=== PATIENT | female | born 1985 | race Caucasian/White ===

== ENCOUNTER 2018-07-25 21:09 | Inpatient (IN) ==
--- NOTE | 2018-07-25 22:09 | ED ---
History of Present Illness Primary Care Physician: NOT REQUIRED Chief Complaint: Decreased movement History of Present Illness: 32 year-old , IUP at 40.3 care complicated by postterm , GBS positive The patient presents complaining of decreased movement and no movement for over an hour. She reports she feels movements now, but they are still decreased. She tried kick counts but with cold water. She reports she has had a lot of mucus discharge. She denies any leaking of fluid or vaginal bleeding. She has no other obstetrical complaints. 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 PMH: Denies PSH: Breast augmentation FH: Denies SH: Denies Meds/Allergies: as per EMR Weeks Gestation:: 40 Para: 1 : 2 Review of Systems All other systems reviewed negative except as stated in HPI Medications and Allergies Allergies Allergy/AdvReac Type Severity Reaction Status Date / Time No Known Drug Allergies Allergy Unknown NONE Verified 07/25/18 21:23 Home Medications Medication Instructions Recorded Confirmed Type prenat.vits,richard,[id number] 1 tab PO DAILY 07/25/18 07/25/18 History [ Vitamin] Exam Vital signs: Vital Signs 07/25/18 21:27 07/25/18 21:35 Temperature 97.8 F Pulse Rate 82 Respiratory Rate 18 Blood Pressure 128/62 Intake & Output 07/25/18 07/25/18 07/26/18 06:59 18:59 06:59 Weight 76.204 kg Narrative: GENERAL: Well-nourished, well-developed patient. SKIN: Warm and dry. No rashes, masses, lesions. HEAD: Normocephalic and atraumatic. EYES: No scleral icterus. No injection or drainage. ENT: No nasal drainage noted. Mucous membranes pink. Airway patent. NECK: Supple, trachea midline. No JVD. CARDIOVASCULAR: Regular rate and rhythm without murmurs, gallops, or rubs. RESPIRATORY: Breath sounds equal bilaterally. No accessory muscle use. BREASTS: Deferred ABDOMEN/GI: Abdomen soft, non-tender, bowel sounds present, no rebound, no guarding Gravid GENITOURINARY: Normal EGBUS, no cervical or vaginal masses noted, physiologic discharge, grossly normal rugae, SVE 1-2/50/-2 FHT's: heart tones are in the 110s with moderate long-term variability, good accelerations, no decelerations noted. This reactive NST and category 1 heart rate tracing. NST indicated for postterm and decreased movement. Reassuring testing but will continue monitoring. EXTREMITIES: No cyanosis or edema. BACK: Nontender without obvious deformity. No CVA tenderness. NEUROLOGICAL/psychiatric: Awake and alert. Motor and sensory grossly within normal limits. Cranial nerves II through XII grossly intact. Grossly normal range of motion. Grossly normal muscle strength in all muscle groups. Normal speech. Normal memory/affect. Oriented x3. A limited bedside ultrasound was performed for biophysical profile and to assess TANESHA. The TANESHA measured 4.81 with pockets of 2.32/1 0.13/1.36. Another pocket appeared to have fluid however was filled with umbilical cord. Good movements and flexion/extension were noted. Assessment and Plan - Plan Assessment/plan: 1. IUP at 40.3 2. Postdate with decreased movement and oligohydramnios: An ultrasound was performed at the bedside which revealed an TANESHA less than 5.0. Discussed with the patient and her the risks, benefits, and alternatives to induction of labor as well as the risks, indications of delivery. We discussed that the patient refused induction of labor, we could IV hydrate and reassess amniotic fluid. The patient is in agreement with induction of labor. She was counseled on the various methods and is in agreement to proceed. All of her questions were answered. 3. well-being: Reassuring testing with reactive NST and category 1 heart rate tracing, oligohydramnios as above 4. GBS positive: will start GBS prophylaxis when in labor, discussed reason for treatment of GBS and that treatment reduces risk of GBS infection by 50%. 5. Abnormal PAP: follow up Discharge Plan - Physicians Team ED Provider: Sruthi Lynn Primary Care Provider: NOT REQUIRED, - Rxs /Orders / Referrals /Forms Prescriptions: No Action prenat.vits,richard,[id number] [ Vitamin] Tablet 1 tab PO DAILY - Discharge Instructions Print Language: Bermudian
[2018-07-25] MEDS ORDERED: Naloxone Inj 0.4 MG/ML Vial IV.PUSH PRN (22:41)
[2018-07-25] MEDS ORDERED: Sod Chloride 0.9% Inj 1,000 ML IV.CONT PRN (22:41)
[2018-07-25] MEDS ORDERED: Sodium Chlor 0.9% Inj 500 ML IV.SIG PRN (22:41)
[2018-07-25] MEDS ORDERED: fentaNYL Citrate Inj 100 MCG/2 ML Ampul IV.PUSH PRN ×2 (22:41)
[2018-07-25] MEDS ORDERED: Oxytocin 30 Units/500ml Premix 30 UNITS/500 ML BAG IV.SIG ONE (22:41)
[2018-07-25] MEDS ORDERED: Citric Acid/Sodium Citrate Liq 30 ML UDC PO SCH (22:45)
--- NOTE | 2018-07-25 23:03 | P.HPUP ---
The Pre-Admit History and Physical Examination regarding the above named patient was reviewed (including, but not limited to, vital signs, heart, lungs, co-morbid conditions), and upon re-examination it is noted that: the patient's condition has not significantly changed since the last examination. History of Present Illness Primary Care Physician: NOT REQUIRED Chief Complaint: Decreased movement History of Present Illness: 32 year-old , IUP at 40.3 care complicated by postterm , GBS positive The patient presents complaining of decreased movement and no movement for over an hour. She reports she feels movements now, but they are still decreased. She tried kick counts but with cold water. She reports she has had a lot of mucus discharge. She denies any leaking of fluid or vaginal bleeding. She has no other obstetrical complaints. 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 PMH: Denies PSH: Breast augmentation FH: Denies SH: Denies Meds/Allergies: as per EMR Weeks Gestation:: 40 Para: 1 : 2 Review of Systems All other systems reviewed negative except as stated in HPI Medications and Allergies Allergies Allergy/AdvReac Type Severity Reaction Status Date / Time No Known Drug Allergies Allergy Unknown NONE Verified 07/25/18 21:23 Home Medications Medication Instructions Recorded Confirmed Type prenat.vits,richard,[id number] 1 tab PO DAILY 07/25/18 07/25/18 History [ Vitamin] Exam Vital signs: Vital Signs 07/25/18 21:27 07/25/18 21:35 Temperature 97.8 F Pulse Rate 82 Respiratory Rate 18 Blood Pressure 128/62 Intake & Output 07/25/18 07/25/18 07/26/18 06:59 18:59 06:59 Weight 76.204 kg Narrative: GENERAL: Well-nourished, well-developed patient. SKIN: Warm and dry. No rashes, masses, lesions. HEAD: Normocephalic and atraumatic. EYES: No scleral icterus. No injection or drainage. ENT: No nasal drainage noted. Mucous membranes pink. Airway patent. NECK: Supple, trachea midline. No JVD. CARDIOVASCULAR: Regular rate and rhythm without murmurs, gallops, or rubs. RESPIRATORY: Breath sounds equal bilaterally. No accessory muscle use. BREASTS: Deferred ABDOMEN/GI: Abdomen soft, non-tender, bowel sounds present, no rebound, no guarding Gravid GENITOURINARY: Normal EGBUS, no cervical or vaginal masses noted, physiologic discharge, grossly normal rugae, SVE 1-2/50/-2 FHT's: heart tones are in the 110s with moderate long-term variability, good accelerations, no decelerations noted. This reactive NST and category 1 heart rate tracing. NST indicated for postterm and decreased movement. Reassuring testing but will continue monitoring. EXTREMITIES: No cyanosis or edema. BACK: Nontender without obvious deformity. No CVA tenderness. NEUROLOGICAL/psychiatric: Awake and alert. Motor and sensory grossly within normal limits. Cranial nerves II through XII grossly intact. Grossly normal range of motion. Grossly normal muscle strength in all muscle groups. Normal speech. Normal memory/affect. Oriented x3. A limited bedside ultrasound was performed for biophysical profile and to assess TANESHA. The TANESHA measured 4.81 with pockets of 2.32/1 0.13/1.36. Another pocket appeared to have fluid however was filled with umbilical cord. Good movements and flexion/extension were noted. Assessment and Plan - Plan Assessment/plan: 1. IUP at 40.3 2. Postdate with decreased movement and oligohydramnios: An ultrasound was performed at the bedside which revealed an TANESHA less than 5.0. Discussed with the patient and her the risks, benefits, and alternatives to induction of labor as well as the risks, indications of delivery. We discussed that the patient refused induction of labor, we could IV hydrate and reassess amniotic fluid. The patient is in agreement with induction of labor. She was counseled on the various methods and is in agreement to proceed. All of her questions were answered. 3. well-being: Reassuring testing with reactive NST and category 1 heart rate tracing, oligohydramnios as above 4. GBS positive: will start GBS prophylaxis when in labor, discussed reason for treatment of GBS and that treatment reduces risk of GBS infection by 50%. 5. Abnormal PAP: follow up Discharge Plan - Physicians Team ED Provider: Sruthi Lynn Primary Care Provider: NOT REQUIRED, - Rxs /Orders / Referrals /Forms Prescriptions: No Action prenat.vits,richard,[id number] [ Vitamin] Tablet 1 tab PO DAILY - Discharge Instructions Print Language: Bahamian
[2018-07-25 23:04] LABS: Bilirubin,Urine Negative (Negative); Clarity,Urine Clear (Clear); Color,Urine Yellow (Yellw/Straw); Glucose,Urine (UA) Negative (Negative); Leukocyte Esterase,Urine Negative (Negative); Mucus,Urine Few /lpf (Occasional); Nitrite,Urine Negative (Negative); Specific Gravity,Urine 1.011 (1.002-1.035); Squamous Epithelial Cell,Urine 1 /hpf (0-5)
[2018-07-25 23:07] LABS: Amphetamine Urine With Conf Neg (Neg); Benzodiazepine Urine With Conf Neg (Neg)
[2018-07-25 23:20] LABS: Baso % (Auto) 0.3 % (0.0-2.0); Eos # (Auto) 0.1 th/mm3 (0.0-0.4); Eos % (Auto) 0.6 % (0.0-4.0); Hematocrit 34.9 % (35.0-46.0); Hemoglobin 11.7 gm/dL (11.6-15.3); Lymph # (Auto) 2.1 th/mm3 (1.0-4.8); Lymph % (Auto) 16.7 % (9.0-44.0); Mean Corpuscular HGB Conc 33.7 % (32.0-36.0); Mean Corpuscular Hemoglobin 31.8 pg (27.0-34.0); Mean Corpuscular Volume 94.3 fL (80.0-100.0); Mean Platelet Volume 9.6 fL (7.0-11.0); Mono # (Auto) 0.7 th/mm3 (0.0-0.9); Mono % (Auto) 5.3 % (0.0-8.0); Neut # (Auto) 9.6 th/mm3 (1.8-7.7); Neut % (Auto) 77.1 % (16.0-70.0); Platelet Count 209 th/mm3 (150-450); White Blood Count 12.5 th/mm3 (4.0-11.0)
--- NOTE | 2018-07-26 07:02 | P.PN ---
Subjective Interval history: OBHG S: patient comfortable O: VSS AF FHT: 110s-120s with moderate assisted variability, good accelerations, no decelerations. Category 1 heart rate tracing, reactive NST [place]: Irregular SVE: 1-2/50/-2 A/P: 1. IUP at 40.4 2. Posterm IOL for oligohydramnios: s/p po cytotec x1, cytotec PV placed 3. GBS positive: PCN G ordered 4. wellbeing: Category 1 heart rate tracing, reactive NST, continue EFM Physical Exam Vital signs: Vital Signs 07/25/18 21:27 07/25/18 21:35 07/26/18 00:30 Temperature 97.8 F Pulse Rate 82 74 Respiratory Rate 18 18 Blood Pressure 128/62 114/65 07/26/18 01:50 07/26/18 02:05 07/26/18 04:00 Temperature Pulse Rate 69 77 Respiratory Rate 18 Blood Pressure 07/26/18 05:03 07/26/18 05:04 07/26/18 06:57 Temperature 98.4 F Pulse Rate 73 80 Respiratory Rate 18 Blood Pressure 108/68 115/64 Intake & Output 07/25/18 07/26/18 07/26/18 18:59 06:59 18:59 Weight 76.204 kg Results - Labs CBC & Chem 7: 07/25/18 23:00 Laboratory Results - last 24 hr 07/25/18 07/25/18 07/25/18 21:24 21:24 23:00 WBC 12.5 H RBC 3.70 L Hgb 11.7 Hct 34.9 L MCV 94.3 MCH 31.8 MCHC 33.7 RDW 14.0 Plt Count 209 MPV 9.6 Neut % (Auto) 77.1 H Lymph % (Auto) 16.7 [place] % (Auto) 5.3 Eos % (Auto) 0.6 Baso % (Auto) 0.3 Neut # (Auto) 9.6 H Lymph # (Auto) 2.1 [place] # (Auto) 0.7 Eos # (Auto) 0.1 Baso # (Auto) 0.0 WBC Differential . Differential Comment Auto diff final Urine Color Yellow Urine Clarity Clear Urine pH 7.0 Ur Specific [place] 1.011 Urine Protein Negative Urine Glucose (UA) Negative Urine Ketones Negative Urine Occult Blood Negative Urine Nitrate Negative Urine Bilirubin Negative Urine Urobilinogen Less than 2 Ur Leukocyte Esterase Negative Urine WBC Less than 1 Ur Squamous Epith Cells 1 Urine Mucus Few H Micro UA Comment Culture not ind Ur Microscopic Review Not Reportable Urine Culture Comments Culture not ind Urine Opiates Screen Neg Ur Barbiturates Screen Neg Ur Amphetamine Screen Neg U Benzodiazepines Scrn Neg Urine Cocaine Screen Neg U Cannabinoids Screen Neg Blood Type Blood Type Recheck 07/25/18 23:00 WBC RBC Hgb Hct MCV MCH MCHC RDW Plt Count MPV Neut % (Auto) Lymph % (Auto) [place] % (Auto) Eos % (Auto) Baso % (Auto) Neut # (Auto) Lymph # (Auto) [place] # (Auto) Eos # (Auto) Baso # (Auto) WBC Differential Differential Comment Urine Color Urine Clarity Urine pH Ur Specific [place] Urine Protein Urine Glucose (UA) Urine Ketones Urine Occult Blood Urine Nitrate Urine Bilirubin Urine Urobilinogen Ur Leukocyte Esterase Urine WBC Ur Squamous Epith Cells Urine Mucus Micro UA Comment Ur Microscopic Review Urine Culture Comments Urine Opiates Screen Ur Barbiturates Screen Ur Amphetamine Screen U Benzodiazepines Scrn Urine Cocaine Screen U Cannabinoids Screen Blood Type O Positive Blood Type Recheck Required
[2018-07-26] MEDS ORDERED: Penicillin G Potassium Inj 5,000,000 UNIT in Sodium Chloride 0.9% Inj 100 ML IV.SIG ONE (08:00)
--- NOTE | 2018-07-26 08:29 | P.OBANTE ---
Subjective Interval History: No new complaints. Feeling some cramping/possible contractions. Vitals wnl. FHT reassuring. Antepartum ROS: Denies: New complaints, Loss of fluid, Vaginal bleeding, movement normal Objective Vital Signs and I&O: Vital Signs 07/25/18 21:27 07/25/18 21:35 07/26/18 00:30 Temperature 97.8 F Pulse Rate 82 74 Respiratory Rate 18 18 Blood Pressure 128/62 114/65 07/26/18 01:50 07/26/18 02:05 07/26/18 04:00 Temperature Pulse Rate 69 77 Respiratory Rate 18 Blood Pressure 07/26/18 05:03 07/26/18 05:04 07/26/18 06:57 Temperature 98.4 F Pulse Rate 73 80 Respiratory Rate 18 Blood Pressure 108/68 115/64 07/26/18 07:00 Temperature 97.8 F Pulse Rate Respiratory Rate Blood Pressure Intake & Output 07/25/18 07/26/18 07/26/18 18:59 06:59 18:59 Weight 76.204 kg 76 kg Other: Weight On Admission 76 kg Lab and Micro Results: Laboratory Results - last 24 hr 07/25/18 07/25/18 07/25/18 21:24 21:24 23:00 WBC 12.5 H RBC 3.70 L Hgb 11.7 Hct 34.9 L MCV 94.3 MCH 31.8 MCHC 33.7 RDW 14.0 Plt Count 209 MPV 9.6 Neut % (Auto) 77.1 H Lymph % (Auto) 16.7 [place] % (Auto) 5.3 Eos % (Auto) 0.6 Baso % (Auto) 0.3 Neut # (Auto) 9.6 H Lymph # (Auto) 2.1 [place] # (Auto) 0.7 Eos # (Auto) 0.1 Baso # (Auto) 0.0 WBC Differential . Differential Comment Auto diff final Urine Color Yellow Urine Clarity Clear Urine pH 7.0 Ur Specific [place] 1.011 Urine Protein Negative Urine Glucose (UA) Negative Urine Ketones Negative Urine Occult Blood Negative Urine Nitrate Negative Urine Bilirubin Negative Urine Urobilinogen Less than 2 Ur Leukocyte Esterase Negative Urine WBC Less than 1 Ur Squamous Epith Cells 1 Urine Mucus Few H Micro UA Comment Culture not ind Ur Microscopic Review Not Reportable Urine Culture Comments Culture not ind Urine Opiates Screen Neg Ur Barbiturates Screen Neg Ur Amphetamine Screen Neg U Benzodiazepines Scrn Neg Urine Cocaine Screen Neg U Cannabinoids Screen Neg Blood Type Blood Type Recheck 07/25/18 23:00 WBC RBC Hgb Hct MCV MCH MCHC RDW Plt Count MPV Neut % (Auto) Lymph % (Auto) [place] % (Auto) Eos % (Auto) Baso % (Auto) Neut # (Auto) Lymph # (Auto) [place] # (Auto) Eos # (Auto) Baso # (Auto) WBC Differential Differential Comment Urine Color Urine Clarity Urine pH Ur Specific [place] Urine Protein Urine Glucose (UA) Urine Ketones Urine Occult Blood Urine Nitrate Urine Bilirubin Urine Urobilinogen Ur Leukocyte Esterase Urine WBC Ur Squamous Epith Cells Urine Mucus Micro UA Comment Ur Microscopic Review Urine Culture Comments Urine Opiates Screen Ur Barbiturates Screen Ur Amphetamine Screen U Benzodiazepines Scrn Urine Cocaine Screen U Cannabinoids Screen Blood Type O Positive Blood Type Recheck Required Physical Exam: GENERAL: Well-nourished, well-developed patient. CARDIOVASCULAR: Regular rate and rhythm without murmurs, gallops, or rubs. RESPIRATORY: Breath sounds equal bilaterally. No accessory muscle use. ABDOMEN/GI: Abdomen soft, non-tender. Fundus: [-] GENITOURINARY: External Genitalia: intact and normal in appearance Cervix: Dilatation: 4 cm Effacement: 80% Station: -1 Presentation: vertex Membranes: intact Uterine Contractions: q2-3 min FHT's: Category: 1 Baseline: 120 Reactive: yes Variability: mod Decels: none EXTREMITIES: No cyanosis or edema, non-tender, without signs of DVT. Assessment and Plan - Plan 32 y/o F @ 40.3 weeks admitted for induction of labor. - Cytotec placed x2, cervix 1-2 cm, 80 % effaced - Clear liquid diet - Schedule Pit to start at 11 am. - Con't expectant management and monitoring Discussed w/OB hospitalist
[2018-07-26] MEDS ORDERED: Oxytocin 30 Units/500ml Premix 30 UNITS/500 ML BAG IV.SIG PRN (11:00)
[2018-07-26] MEDS: Penicillin G Potassium Inj 2,500,000 UNIT in Sodium Chlor 0.9% Inj 100 ML IV.SIG SCH ×2 (11:29→15:22)
[2018-07-26] MEDS ORDERED: Lidocaine 1% Inj 50 ML Vial ONE (12:06)
[2018-07-26] MEDS ORDERED: fentaNYL 2MCG-Bupiv 0.125% Epi 150 ML EPIDURAL ONE (12:44)
[2018-07-26] MEDS ORDERED: Lidocaine PF 1% Inj 10 ML Amp ONE (12:46)
[2018-07-26] MEDS ORDERED: Lidocaaine 1.5%/Epinephrine 1:200,000 PF Inj 5 ML Amp ONE (12:47)
[2018-07-26] MEDS ORDERED: fentaNYL Citrate Inj 100 MCG/2 ML Ampul EPIDURAL ONE (13:59)
[2018-07-26] MEDS ORDERED: fentaNYL 2MCG-Bupiv 0.125% Epi 150 ML EPIDURAL PRN (13:59)
[2018-07-26] MEDS ORDERED: Measles/Mumps/Rubella Vaccine Inj 0.5 ML Vial SQ ONE (16:00)
[2018-07-26] MEDS ORDERED: Diphtheria/Tetanus/Pertussis Vaccine Inj 0.5 ML Syringe IM ONE (16:00)
[2018-07-26] MEDS ORDERED: Oxytocin 30 Units/500ml Premix 30 UNITS/500 ML BAG IV.CONT PRN (17:25)
[2018-07-26] MEDS ORDERED: Naloxone Inj 0.4 MG/ML Vial IV.PUSH PRN (17:25)
[2018-07-26] MEDS ORDERED: Bisacodyl 10 MG Supp RECTAL PRN (17:25)
[2018-07-26] MEDS ORDERED: Benzocaine 20% Top Spray 60 ML Can TOPICAL PRN (17:25)
[2018-07-26] MEDS ORDERED: Zolpidem Tartrate 5 MG Tablet PO PRN (17:25)
--- NOTE | 2018-07-26 17:30 | P.OBDELI ---
Weeks Gestation: 40 Medical Induction of Labor: Yes (IUGR) Artificial Rupture of Membrane: Yes Anesthesia: Epidural Episiotomy: none Vaginal Delivery: Vacuum Presentation: Occiput anterior Nuchal Cord: x1 Delayed Cord Clamping (45 sec): Yes Placenta: Spontaneous delivery Laceration: Vaginal Repair: Vicryl running Estimated blood loss (mL): 100 Infant: Male Male A Delivery Date: 07/26/18 Delivery Time: 17:11 Weight: 3.27 kg score (1 min): 9 score (5 min): 9 (vac assisted delivery 2 pop offs only , lacerations were bilateral labial 10 oclock and 2 oclock)
[2018-07-27] MEDS: Senna/Docusate Sodium 8.6/50 MG Tablet PO SCH ×3 (03:17→23:03)
[2018-07-27] MEDS: Penicillin G Potassium Inj 2,500,000 UNIT in Sodium Chlor 0.9% Inj 100 ML IV.SIG SCH (03:19)
[2018-07-27] MEDS: Witch Hazel 50%/Glyderin 12.5% 40 Pad Jar RECTAL PRN ×2 (03:20→19:51)
[2018-07-27] MEDS: Acetaminophen 325 MG Tablet PO PRN ×5 (04:13→19:50)
--- NOTE | 2018-07-27 08:51 | P.PNOB ---
Subjective Interval history: Patient is a 32-year-old delivered at 40 weeks and 3 days. Patient is day 1 after IVD for oligo and IUGR. The delivery was vacuum assisted with repaired bilateral labial lacerations. Patient's pain is well-controlled. Patient reports eating and drinking without any nausea or vomiting. Patient reports bleeding requiring pad changes every hour or so. Patient is walking without lower extremity pain or shortness of breath. Patient reports desire for contraception, but she is still contemplating the method. She does not want to breast feed. Objective Vital Signs/I&O: Vital Signs 07/26/18 11:03 07/26/18 11:30 07/26/18 12:18 Temperature 98.2 F Pulse Rate 80 79 70 Respiratory Rate 18 Blood Pressure 106/67 113/73 102/72 07/26/18 13:20 07/26/18 13:25 07/26/18 13:30 Temperature 98.2 F Pulse Rate 89 79 Respiratory Rate 20 Blood Pressure 130/97 H 125/50 L 07/26/18 13:40 07/26/18 13:55 07/26/18 14:40 Temperature Pulse Rate 73 63 68 Respiratory Rate Blood Pressure 119/104 H 109/54 L 110/41 L 07/26/18 14:55 07/26/18 15:00 07/26/18 15:10 Temperature 98.2 F Pulse Rate 73 84 66 Respiratory Rate 20 Blood Pressure 111/65 108/64 07/26/18 15:25 07/26/18 15:40 07/26/18 16:10 Temperature Pulse Rate 78 66 70 Respiratory Rate Blood Pressure 108/60 108/59 L 07/26/18 16:25 07/26/18 17:16 07/26/18 17:31 Temperature Pulse Rate 71 84 91 H Respiratory Rate Blood Pressure 112/67 106/67 94/61 L 07/26/18 18:00 07/26/18 18:15 07/26/18 19:25 Temperature Pulse Rate 80 70 90 Respiratory Rate 18 18 Blood Pressure 122/72 104/63 98/56 L 07/26/18 19:30 07/26/18 20:04 07/26/18 22:15 Temperature 98.2 F Pulse Rate 83 74 Respiratory Rate 18 16 Blood Pressure 108/67 106/65 Intake & Output 07/26/18 07/27/18 07/27/18 18:59 06:59 18:59 Intake Total 1100 / 1100 Balance 1100 / 1100 Weight 76 kg Intake: IV 1100 / 1100 LR 1000 mL Inj 1,000 ML @ 125 1000 / 1000 mls/hr IV.CONT .Q8H [facility] Rx#: [id number] Pfizerpen-G Inj 2,500,000 UNIT 100 / 100 In NS Inj 100 ML @ 200 mls/hr IV.SIG Q4H [facility] Rx#:[id number] Other: Weight On Admission 76 kg Result Diagrams: 07/25/18 23:00 Objective Remarks: GENERAL: Well-nourished, well-developed patient. CARDIOVASCULAR: Regular rate and rhythm without murmurs, gallops, or rubs. RESPIRATORY: Breath sounds equal bilaterally. No accessory muscle use. ABDOMEN/GI: Abdomen soft, non-tender. Fundus: Firm, non-tender at umbilicus. GENITOURINARY: Light to moderate bleeding. EXTREMITIES: No cyanosis or edema, non-tender, without signs of DVT. Medications and IVs: Active Medications Acetaminophen (Tylenol) 650 mg PO Q4H PRN PRN Reason: PAIN SCALE 1 TO 2 Last Admin: 07/27/18 08:37 Dose: 650 mg Al Hydroxide/Mg Hydroxide (Milk Of Magnesia Liq) 30 ml PO Q12H PRN PRN Reason: Mild Constipation Benzocaine (Americaine 20% Top [place]) 1 spray TOPICAL Q4H PRN PRN Reason: For Perineum Discomfort Last Admin: 07/27/18 03:18 Dose: 1 spray Bisacodyl (Dulcolax Supp) 10 mg RECTAL DAILY PRN PRN Reason: SEVERE CONSITIPATION Calcium Carbonate (Tums Chew) 500 mg CHEW Q2H PRN PRN Reason: HEARTBURN Citric Acid/Sodium Citrate (Sodium Citrate/Citric Acid Liq) 30 ml 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 [facility] Stop: 07/29/18 22:44 Ephedrine Sulfate (Ephedrine/Ns Syringe) 10 mg IV.PUSH UNSCH PRN PRN Reason: SEE LABEL COMMENTS Stop: 07/27/18 13:59 Last Admin: 07/26/18 15:02 Dose: 10 mg Fentanyl Citrate (Fentanyl Inj) 50 mcg IV.PUSH Q1H PRN PRN Reason: Pain Scale 3 - 5 Fentanyl Citrate (Fentanyl Inj) 100 mcg IV.PUSH Q1H PRN PRN Reason: PAIN SCALE 6 TO 10 Lactated Ringer's (Lr 1000 Ml Inj) 1,000 mls @ 125 mls/hr IV.CONT .Q8H [facility] Last Admin: 07/27/18 03:19 Dose: Not Given Lactated Ringer's (Lr 1000 Ml Inj) 1,000 mls @ 3,000 mls/hr IV.SIG UNSCH PRN PRN Reason: compromise or epidural Sodium Chloride (Ns Inj) 500 mls @ 1,000 mls/hr IV.SIG UNSCH PRN PRN Reason: SEE LABEL COMMENTS Last Admin: 07/26/18 04:05 Dose: 1,000 mls/hr Sodium Chloride (Ns Inj) 1,000 mls @ 100 mls/hr IV.CONT .Q10H PRN PRN Reason: SEE LABEL COMMENTS Penicillin G Potassium 2,500, (000 unit/ Sodium Chloride) 100 mls @ 200 mls/hr IV.SIG Q4H [facility] Last Admin: 07/27/18 03:19 Dose: Not Given Oxytocin (Pitocin 30 Units/Ns 500 Ml Premix) 30 units in 500 mls @ 2 mls/hr IV.SIG TITRATE PRN; Protocol PRN Reason: For induction of labor Last Admin: 07/26/18 11:28 Dose: 2 milliunit/min, 2 mls/hr Fentanyl/Bupivacaine/Sodium Chlor (Fentanyl 2 Mcg-Bupiv 0.125% Epi) 150 mls @ 12 mls/hr EPIDURAL PRN PRN PRN Reason: for Labor Pain Last Admin: 07/26/18 15:01 Dose: 12 mls/hr Oxytocin (Pitocin 30 Units/Ns 500 Ml Premix) 30 units in 500 mls @ 100 mls/hr IV.CONT UNSCH PRN PRN Reason: Heavy bleeding Ibuprofen (Motrin) 800 mg PO Q8H PRN PRN Reason: For Cramping Last Admin: 07/27/18 04:12 Dose: 800 mg Lactulose (Lactulose Liq) 30 ml PO DAILY PRN PRN Reason: SEVERE CONSITIPATION Lidocaine HCl (Xylocaine 1% Inj) 0.1 ml I-DERMAL PRN PRN PRN Reason: For IV start Stop: 07/28/18 22:40 Lidocaine HCl (Xylocaine 1% Inj) 10 ml INFILTRATN PRN PRN PRN Reason: For episiotomy repair Stop: 07/27/18 22:40 Mineral Oil (Muri-Lube Oil) 10 ml TOPICAL PRN PRN PRN Reason: PRN perineal massage Miscellaneous Information (Misc Information) 1 each OTHER UNSCH PRN PRN Reason: SEE LABEL COMMENTS Stop: 07/27/18 13:59 Miscellaneous Information (Misc Information) 1 each OTHER UNSCH PRN PRN Reason: SEE LABEL COMMENTS Stop: 07/27/18 13:59 Naloxone HCl (Narcan Inj) 0.1 mg IV.PUSH Q2M PRN PRN Reason: for opiate reversal Naloxone HCl (Narcan Inj) 0.1 mg IV.PUSH Q2M PRN PRN Reason: for opiate reversal Ondansetron HCl (Zofran Odt) 4 mg PO Q6H PRN PRN Reason: NAUSEA OR VOMITING Oxycodone/Acetaminophen (Percocet 5/325 Mg) 1 tab PO Q4H PRN PRN Reason: PAIN SCALE 3 TO 5 Senna/Docusate Sodium (Jackie-Colace) 1 tab PO BID [facility] Last Admin: 07/27/18 08:37 Dose: 1 tab Sennosides (Senokot) 17.2 mg PO Q12H PRN PRN Reason: Moderate Constipation Sodium Chloride (Ns Flush) 2 ml IV.FLUSH BID [facility] Last Admin: 07/26/18 11:30 Dose: 2 ml Sodium Chloride (Ns Flush) 2 ml IV.FLUSH PRN PRN PRN Reason: FLUSH AFTER USING IV ACCESS Sodium Chloride (Ns Flush) 2 ml IV.FLUSH PRN PRN PRN Reason: FLUSH AFTER USING IV ACCESS Sodium Chloride (Ns Flush) 2 ml IV.FLUSH BID [facility] Wit Radha/Glycerin (Tucks Pads) 1 applicatio RECTAL QID PRN PRN Reason: HEMORRHOIDS Last Admin: 07/27/18 03:20 Dose: 1 applicatio Zolpidem Tartrate (Ambien) 5 mg PO HS PRN PRN Reason: SLEEP Assessment and Plan - Plan Patient is a 32-year-old delivered at 40 weeks and 3 days. Patient is day 1 after IVD for oligo and IUGR. The delivery was vacumm assisted with repaired bilateral labial lacerations. Patient was counseled to do 6 weeks of pelvic rest. Patient was counseled to follow up in 6 weeks. Patient requested follow-up and contraception. --AF VSS --CBC today to monitor for anemia. Hx of anemia in prior --Continue routine care --Motrin and Percocet when necessary for pain --Encourage OOB --Pelvic rest for 6 weeks will need follow-up appointment at that time. --Contraception: patient is still contemplating --Anticipate discharge tomorrow
[2018-07-27 09:32] LABS: Baso % (Auto) 0.2 % (0.0-2.0); Eos # (Auto) 0.1 th/mm3 (0.0-0.4); Eos % (Auto) 0.5 % (0.0-4.0); Hemoglobin 10.6 gm/dL (11.6-15.3); Lymph # (Auto) 1.6 th/mm3 (1.0-4.8); Lymph % (Auto) 12.2 % (9.0-44.0); Mean Corpuscular HGB Conc 34.2 % (32.0-36.0); Mean Corpuscular Volume 93.6 fL (80.0-100.0); Mean Platelet Volume 9.1 fL (7.0-11.0); Mono # (Auto) 0.8 th/mm3 (0.0-0.9); Mono % (Auto) 6.3 % (0.0-8.0); Neut # (Auto) 10.4 th/mm3 (1.8-7.7); Neut % (Auto) 80.8 % (16.0-70.0); Platelet Count 169 th/mm3 (150-450); Red Blood Count 3.32 mil/mm3 (4.00-5.30); Red Cell Distribution Width 13.9 % (11.6-17.2); White Blood Count 12.8 th/mm3 (4.0-11.0)
[2018-07-28] MEDS: Senna/Docusate Sodium 8.6/50 MG Tablet PO SCH (09:06)
--- NOTE | 2018-07-28 09:43 | P.PNOB ---
Subjective Post day: 2 Interval history: Pt seen and examined bedside this morning. Pt tolerating PO, and ambulating and voiding without difficulty. Denies any CP/SOB/dizzyness. Pain well- controlled on current medications. No calf tenderness. Objective Vital Signs/I&O: Vital Signs 07/27/18 20:00 Temperature 97.7 F Pulse Rate 68 Respiratory Rate 18 Blood Pressure 115/74 Result Diagrams: 07/27/18 09:22 Objective Remarks: GENERAL: Well-nourished, well-developed patient. CARDIOVASCULAR: Regular rate and rhythm without murmurs, gallops, or rubs. RESPIRATORY: Breath sounds equal bilaterally. No accessory muscle use. ABDOMEN/GI: Abdomen soft, non-tender. Fundus: Firm, non-tender at umbilicus. GENITOURINARY: Light to moderate bleeding. EXTREMITIES: No cyanosis or edema, non-tender, without signs of DVT. Medications and IVs: Active Medications Acetaminophen (Tylenol) 650 mg PO Q4H PRN PRN Reason: PAIN SCALE 1 TO 2 Last Admin: 07/27/18 19:50 Dose: 650 mg Al Hydroxide/Mg Hydroxide (Milk Of Magnesia Liq) 30 ml PO Q12H PRN PRN Reason: Mild Constipation Benzocaine (Americaine 20% Top [place]) 1 spray TOPICAL Q4H PRN PRN Reason: For Perineum Discomfort Last Admin: 07/27/18 03:18 Dose: 1 spray Bisacodyl (Dulcolax Supp) 10 mg RECTAL DAILY PRN PRN Reason: SEVERE CONSITIPATION Calcium Carbonate (Tums Chew) 500 mg CHEW Q2H PRN PRN Reason: HEARTBURN Citric Acid/Sodium Citrate (Sodium Citrate/Citric Acid Liq) 30 ml PO RING FACER [facility] Stop: 07/29/18 22:44 Fentanyl Citrate (Fentanyl Inj) 50 mcg IV.PUSH Q1H PRN PRN Reason: Pain Scale 3 - 5 Fentanyl Citrate (Fentanyl Inj) 100 mcg IV.PUSH Q1H PRN PRN Reason: PAIN SCALE 6 TO 10 Lactated Ringer's (Lr 1000 Ml Inj) 1,000 mls @ 125 mls/hr IV.CONT .Q8H [facility] Last Admin: 07/27/18 03:19 Dose: Not Given Lactated Ringer's (Lr 1000 Ml Inj) 1,000 mls @ 3,000 mls/hr IV.SIG UNSCH PRN PRN Reason: compromise or epidural Sodium Chloride (Ns Inj) 500 mls @ 1,000 mls/hr IV.SIG UNSCH PRN PRN Reason: SEE LABEL COMMENTS Last Admin: 07/26/18 04:05 Dose: 1,000 mls/hr Sodium Chloride (Ns Inj) 1,000 mls @ 100 mls/hr IV.CONT .Q10H PRN PRN Reason: SEE LABEL COMMENTS Penicillin G Potassium 2,500, (000 unit/ Sodium Chloride) 100 mls @ 200 mls/hr IV.SIG Q4H [facility] Last Admin: 07/27/18 03:19 Dose: Not Given Oxytocin (Pitocin 30 Units/Ns 500 Ml Premix) 30 units in 500 mls @ 2 mls/hr IV.SIG TITRATE PRN; Protocol PRN Reason: For induction of labor Last Admin: 07/26/18 11:28 Dose: 2 milliunit/min, 2 mls/hr Fentanyl/Bupivacaine/Sodium Chlor (Fentanyl 2 Mcg-Bupiv 0.125% Epi) 150 mls @ 12 mls/hr EPIDURAL PRN PRN PRN Reason: for Labor Pain Last Admin: 07/26/18 15:01 Dose: 12 mls/hr Oxytocin (Pitocin 30 Units/Ns 500 Ml Premix) 30 units in 500 mls @ 100 mls/hr IV.CONT UNSCH PRN PRN Reason: Heavy bleeding Ibuprofen (Motrin) 800 mg PO Q8H PRN PRN Reason: For Cramping Last Admin: 07/28/18 09:06 Dose: 800 mg Lactulose (Lactulose Liq) 30 ml PO DAILY PRN PRN Reason: SEVERE CONSITIPATION Lidocaine HCl (Xylocaine 1% Inj) 0.1 ml I-DERMAL PRN PRN PRN Reason: For IV start Stop: 07/28/18 22:40 Mineral Oil (Muri-Lube Oil) 10 ml TOPICAL PRN PRN PRN Reason: PRN perineal massage Naloxone HCl (Narcan Inj) 0.1 mg IV.PUSH Q2M PRN PRN Reason: for opiate reversal Naloxone HCl (Narcan Inj) 0.1 mg IV.PUSH Q2M PRN PRN Reason: for opiate reversal Ondansetron HCl (Zofran Odt) 4 mg PO Q6H PRN PRN Reason: NAUSEA OR VOMITING Oxycodone/Acetaminophen (Percocet 5/325 Mg) 1 tab PO Q4H PRN PRN Reason: PAIN SCALE 3 TO 5 Senna/Docusate Sodium (Jackie-Colace) 1 tab PO BID [facility] Last Admin: 07/28/18 09:06 Dose: 1 tab Sennosides (Senokot) 17.2 mg PO Q12H PRN PRN Reason: Moderate Constipation Sodium Chloride (Ns Flush) 2 ml IV.FLUSH BID [facility] Last Admin: 07/27/18 22:59 Dose: Not Given Sodium Chloride (Ns Flush) 2 ml IV.FLUSH PRN PRN PRN Reason: FLUSH AFTER USING IV ACCESS Sodium Chloride (Ns Flush) 2 ml IV.FLUSH PRN PRN PRN Reason: FLUSH AFTER USING IV ACCESS Sodium Chloride (Ns Flush) 2 ml IV.FLUSH BID [facility] Last Admin: 07/27/18 22:59 Dose: Not Given Witch Radha/Glycerin (Tucks Pads) 1 applicatio RECTAL QID PRN PRN Reason: HEMORRHOIDS Last Admin: 07/27/18 19:51 Dose: 1 applicatio Zolpidem Tartrate (Ambien) 5 mg PO HS PRN PRN Reason: SLEEP Assessment and Plan - Diagnosis (1) care and examination Code(s): Z39.2 - Encounter for routine follow-up Status: Acute - Plan Patient is a 32-year-old delivered at 40 weeks and 3 days. Patient is day 2 after IVD for oligo and IUGR. The delivery was vacumm assisted with repaired bilateral labial lacerations. Patient was counseled to do 6 weeks of pelvic rest. Patient was counseled to follow up in 6 weeks. Patient requested follow-up and contraception. --AF VSS --CBC stable --Continue routine care --Motrin and Percocet when necessary for pain --Encourage OOB --Pelvic rest for 6 weeks will need follow-up appointment at that time. --Contraception: patient is still contemplating --Anticipate discharge today
[2018-07-28 10:18] VITALS: RESP 20
[2018-07-28 10:19] VITALS: TEMP 98
[2018-07-28] MEDS: Acetaminophen 325 MG Tablet PO PRN (12:25)
[2018-07-28 12:37] VITALS: BP 118/77; PULSE 53
== END 2018-07-28 12:45 | disposition home or self-care (01) ==
LOC: HOBED 21:09 → H2E 22:11 → H1EA 07-26 21:42
PROVIDERS: ADMIT Obstetrics & Gynecology; ATTEND Obstetrics & Gynecology